=== PATIENT | male | born 1995 | race Caucasian/White ===

== ENCOUNTER 2019-12-01 00:45 | Emergency (ER) | payer BC ==
[2019-12-01 01:20] LABS: #Basophils 0.1 thou/uL (0.0-0.2); #Eosinphils 0.2 thou/uL (0.0-0.7); #Lymphocytes 2.3 thou/uL (1.20-3.40); %Basophils 0.7 % (0.0-1.0); %Eosinophils 1.6 % (0.0-10.0); %Lymphocytes 20.1 % (21.0-51.0); %Monocytes 8.4 % (0.0-10.0); %Neutrophils 69.3 % (42.0-75.0); Hemoglobin 14.8 g/dL (14.0-18.0); Mean Corpuscular HGB CONC 32.4 g/dL (32.0-36.0); Mean Corpuscular Hemoglobin 28.1 pg (27.0-31.0); Mean Corpuscular Volume 86.7 fL (78.0-98.0); Mean Platelet Volume 7.1 fL (7.4-10.4); Platelet Count 265 thou/uL (130-400); RBC Distribution Width 11.7 % (11.5-14.5); Red Blood Cell (RBC) Count 5.26 mill/uL (4.70-6.10); White Blood Cell (WBC) Count 11.5 thou/uL (4.8-10.8)
[2019-12-01 01:45] LABS: ALT (SGPT) 23 U/L (8-55); AST (SGOT) 20 U/L (5-34); Albumin 4.3 g/dL (3.5-5.0); Alkaline Phosphatase 93 U/L (40-110); Anion Gap 17 mmol/L (10-20); BUN (Urea Nitrogen) 10 mg/dL (8.9-20.6); Bilirubin, Total 0.8 mg/dL (0.2-1.2); Calc. Creatinine Clearance 0 mL/min (70-130); Calcium 9.5 mg/dL (7.8-10.44); Carbon Dioxide 26 mmol/L (22-29); Chloride 102 mmol/L (98-107); Estimated GFR-MDRD 81; Globulin 3.4 g/dL (2.4-3.5); Glucose 110 mg/dL (70-105); Potassium 4.1 mmol/L (3.5-5.1); Protein, Total 7.7 g/dL (6.0-8.3); Sodium 141 mmol/L (136-145)
[2019-12-01] MEDS ORDERED: Clindamycin/D5W 900 mg/50 ml Premix Bag ONE (02:09)
--- NOTE | 2019-12-01 07:45 | CT ---
PRELIMINARY REPORT/[facility]/EMERGENCY AFTER HOURS PROCEDURE: EXAM: CT Pelvis Without Intravenous Contrast. CLINICAL HISTORY: 24M presents to the ED for evaluation of pain to buttocks/swelling that has been ongoing for the last 1 day. Patient states history of pilonidal as a child but not drained. Denies fever, chills in assoc iation. Pain with defacation. TECHNIQUE: Axial computed tomography images of the pelvis without intravenous contrast. CONTRAST: None. COMPARISON: None provided. FINDINGS: BONES: No acute fracture. No suspicious focal osseous lesions. SOFT TISSUES: A 2.8 cm collection of fluid and gas with surrounding inflammatory change in the soft tissues deep to the intergluteal crease and superficial to the coccyx. Findings are consistent with a pilonidal absc ess. The appendix is normal. IMPRESSION: A 2.8 cm collection of fluid and gas with surrounding inflammatory change in the soft tissues deep to the intergluteal crease and superficial to the coccyx. Findings are consistent with a pilonidal absc ess. ELECTRONICALLY SIGNED BY: Slava Sena MD Dec 01, 2019 2:22:32 AM CDT This report is intended for review by the ordering physician only, in accordance of law. If you recei ve this report in error, please call [facility] at [phone]. FINAL REPORT EMERGENCY AFTER HOURS CT PELVIS: IMPRESSION: I agree with the preliminary interpretation given by [facility] that there is a poorly circumsc ribed area of fluid and gas with surrounding fat stranding at the cranial aspects of the cleft slightly left of midline. This is compatible with infectious change and associated abscess formation. This could be related to a pilonidal cyst given the patient's history. POS: JEFF
[2019-12-01] MEDS ORDERED: Iopamidol 370 76% 100 ML VIAL ONE (09:25)
== END 2019-12-01 03:07 | disposition home or self-care (01) ==
LOC: ERS 00:45
DX: L05.01 Pilonidal cyst with abscess (principal)
CPT/HCPCS: 36415; 72193; 80053; 85025; 96365; J3490; Q9967